=== PATIENT | male | born 1985 | race Caucasian/White ===

== ENCOUNTER 2021-05-08 23:43 | Emergency (ER) | payer OTHER ==
[~2021-05-08] VITALS: Ht 165.1 cm; Wt 75.0 kg
[2021-05-09 02:34] LABS: BASOPHILS % (AUTO) 2.4 % (0.0-2.0); EOSINOPHILS % (AUTO) 2.2 % (1.0-6.0); HEMATOCRIT 42.4 % (41-53); HEMOGLOBIN 13.8 g/dL (13.5-17.5); LYMPHOCYTES % (AUTO) 29.8 % (22.0-44.0); MEAN CORPUSCULAR HEMOGLOBIN 31.4 pg (26.0-34.0); MEAN CORPUSCULAR HGB CONC 32.6 G/dL (31.0-37.0); MEAN CORPUSCULAR VOLUME 96 fL (80-100); MONOCYTES # (AUTO) 0.7 K/uL (0.1-1.0); MONOCYTES % (AUTO) 10.1 % (2.0-9.0); NEUTROPHILS # (AUTO) 3.7 K/uL (1.8-7.7); NEUTROPHILS % (AUTO) 55.5 % (40.0-70.0); PLATELET COUNT (AUTO) 177 K/uL (150-450); RED BLOOD CELL COUNT(AUTO) 4.41 MIL/uL (4.50-5.90)
[2021-05-09 02:53] LABS: ANION GAP 6 mmol/L (8-16); CALCIUM, TOTAL 8.9 mg/dL (8.8-10.5); CARBON DIOXIDE 28 mmol/L (22-29); CHLORIDE 103 mmol/L (98-107); CREATININE 0.87 mg/dL (0.60-1.30); GLOMERULAR FILTR. RATE CALC > 60 mL/min (>60); GLUCOSE,RANDOM 94 mg/dL (70-110); SODIUM SERUM 137 mmol/L (136-145); UREA NITROGEN, BLOOD 30 mg/dL (7-18)
[2021-05-09 02:56] LABS: INR 1.2 (0.9-1.1); PROTHROMBIN TIME 12.4 SEC (9.4-11.6)
[2021-05-09 03:09] LABS: ALANINE AMINOTRANSFERASE 37 U/L (12-78); ALBUMIN 3.8 g/dL (3.4-5.0); ALKALINE PHOSPHATASE 95 U/L (46-116); ASPARTATE AMINOTRANSFERASE 22 U/L (15-37); BILIRUBIN,TOTAL 0.4 mg/dL (0.1-1.0); CREATINE KINASE, TOTAL ONLY 293 U/L (39-308)
[2021-05-09 03:16] LABS: B-TYPE NATRIURETIC PEPTIDE 6 pg/mL (0-100)
[2021-05-09 04:41] VITALS: BP 124/57
== END 2021-05-09 04:43 | disposition home or self-care (01) ==
LOC: EMS 23:43
DX: I44.0 Atrioventricular block, first degree (principal); F41.9 Anxiety disorder, unspecified; R00.1 Bradycardia, unspecified
CPT/HCPCS: 71045; 80053; 82550; 83880; 84484; 85025; 85610; 85730; 93005; 99285; 36415-L1; 36415-TC

== ENCOUNTER 2021-05-23 15:27 | Emergency (ER) | payer OTHER ==
[~2021-05-23] VITALS: Ht 165.1 cm; Wt 75.0 kg
[2021-05-23] MEDS ORDERED: HYDROCODONE/ACETAMINOPHEN 5-325 MG TABLET PO ONE (17:00)
[2021-05-23] MEDS ORDERED: LIDOCAINE 1% 10 ML VIAL ID ONE (17:00)
[2021-05-23] MEDS ORDERED: SODIUM CHLORIDE 0.9% 250 ML IRRIG SOLUTION BOTTLE IRRIG ONE (17:00)
[2021-05-23 20:27] VITALS: BP 128/77
== END 2021-05-23 20:30 | disposition home or self-care (01) ==
LOC: EMS 15:27
DX: S61.211A Laceration without foreign body of left index finger without damage to nail, initial encounter (principal); W25.XXXA Contact with sharp glass, initial encounter; Y93.89 Activity, other specified; Y92.89 Other specified places as the place of occurrence of the external cause; Y99.8 Other external cause status
CPT/HCPCS: 12001; 73130; 99283; J3490

== ENCOUNTER 2021-06-01 09:22 | Emergency (ER) | payer OTHER ==
[~2021-06-01] VITALS: Ht 170.2 cm; Wt 72.7 kg
[2021-06-01 11:47] VITALS: BP 125/71
== END 2021-06-01 11:48 | disposition home or self-care (01) ==
LOC: EMS 09:39
DX: S61.211A Laceration without foreign body of left index finger without damage to nail, initial encounter (principal); X58.XXXA Exposure to other specified factors, initial encounter; Y93.89 Activity, other specified; Y92.89 Other specified places as the place of occurrence of the external cause; Y99.8 Other external cause status
CPT/HCPCS: 12001; 99282; Z7502

== ENCOUNTER 2021-06-03 09:27 | Emergency (ER) | payer OTHER ==
[~2021-06-03] VITALS: Ht 165.1 cm; Wt 75.0 kg
[2021-06-03] MEDS ORDERED: CEPH500C3 PO (09:34)
[2021-06-03 09:38] VITALS: BP 117/66
== END 2021-06-03 10:00 | disposition left against medical advice (07) ==
LOC: EMS 09:27
DX: Z48.00 Encounter for change or removal of nonsurgical wound dressing (principal); Z53.21 Procedure and treatment not carried out due to patient leaving prior to being seen by health care provider

== ENCOUNTER 2021-06-23 06:57 | Emergency (ER) | payer OTHER ==
[~2021-06-23] VITALS: Ht 167.6 cm; Wt 77.3 kg
[~2021-06-23 06:57] MED LIST: CEPH500C3 PO
[2021-06-23 07:02] VITALS: BP 123/72
== END 2021-06-23 07:50 | disposition home or self-care (01) ==
LOC: EMS 06:57
DX: S61.211D Laceration without foreign body of left index finger without damage to nail, subsequent encounter (principal); Z48.00 Encounter for change or removal of nonsurgical wound dressing; W25.XXXD Contact with sharp glass, subsequent encounter
CPT/HCPCS: 99281; Z7502

== ENCOUNTER 2021-07-15 07:58 | Emergency (ER) | payer OTHER ==
[~2021-07-15] VITALS: Ht 165.1 cm; Wt 77.3 kg
[2021-07-15 08:01] VITALS: BP 115/67
== END 2021-07-15 08:40 | disposition home or self-care (01) ==
LOC: EMS 07:58
DX: S80.211A Abrasion, right knee, initial encounter (principal); Z48.00 Encounter for change or removal of nonsurgical wound dressing; W19.XXXA Unspecified fall, initial encounter; Y93.89 Activity, other specified; Y92.89 Other specified places as the place of occurrence of the external cause; Y99.8 Other external cause status
CPT/HCPCS: 99281; 99282; Z7502

== ENCOUNTER 2021-07-31 15:17 | Emergency (ER) | payer OTHER ==
[~2021-07-31] VITALS: Ht 165.1 cm; Wt 77.3 kg
[2021-07-31 19:44] LABS: ANION GAP 8 mmol/L (8-16); CALCIUM, TOTAL 8.7 mg/dL (8.8-10.5); CARBON DIOXIDE 26 mmol/L (22-29); CHLORIDE 106 mmol/L (98-107); CREATININE 0.65 mg/dL (0.60-1.30); GLOMERULAR FILTR. RATE CALC > 60 mL/min (>60); GLUCOSE,RANDOM 107 mg/dL (70-110); POTASSIUM 3.8 mmol/L (3.5-5.1); SODIUM SERUM 140 mmol/L (136-145); UREA NITROGEN, BLOOD 13 mg/dL (7-18)
[2021-07-31 19:45] LABS: BASOPHILS % (AUTO) 1.2 % (0.0-2.0); EOSINOPHILS % (AUTO) 1.2 % (1.0-6.0); HEMATOCRIT 45.2 % (41-53); HEMOGLOBIN 15.2 g/dL (13.5-17.5); LYMPHOCYTES # (AUTO) 2.1 K/uL (1.0-4.8); LYMPHOCYTES % (AUTO) 30.4 % (22.0-44.0); MEAN CORPUSCULAR HEMOGLOBIN 31.8 pg (26.0-34.0); MEAN CORPUSCULAR HGB CONC 33.5 G/dL (31.0-37.0); MEAN CORPUSCULAR VOLUME 95 fL (80-100); MONOCYTES # (AUTO) 0.5 K/uL (0.1-1.0); MONOCYTES % (AUTO) 7.7 % (2.0-9.0); NEUTROPHILS # (AUTO) 4.2 K/uL (1.8-7.7); NEUTROPHILS % (AUTO) 59.5 % (40.0-70.0); PLATELET COUNT (AUTO) 172 K/uL (150-450); RED BLOOD CELL COUNT(AUTO) 4.77 MIL/uL (4.50-5.90); RED CELL DISTRIBUTION WIDTH 13.8 % (11.5-14.5)
[2021-07-31 19:52] LABS: ALANINE AMINOTRANSFERASE 33 U/L (12-78); ALBUMIN 3.7 g/dL (3.4-5.0); ALKALINE PHOSPHATASE 77 U/L (46-116); ASPARTATE AMINOTRANSFERASE 20 U/L (15-37); BILIRUBIN,TOTAL 0.8 mg/dL (0.1-1.0); TOTAL PROTEIN, SERUM 7.6 g/dL (6.4-8.2)
[2021-07-31 20:08] VITALS: BP 132/82
== END 2021-07-31 20:08 | disposition home or self-care (01) ==
LOC: EMS 15:18
DX: H53.8 Other visual disturbances (principal)
CPT/HCPCS: 70450; 80053; 85025; 99284

== ENCOUNTER → 2021-08-21 | Emergency (ER) | payer OTHER ==
[~2021-08-21] VITALS: Ht 165.1 cm; Wt 77.3 kg
[2021-08-21 09:39] VITALS: BP 122/60
== END | disposition left against medical advice (07) ==
LOC: EDUNIT# 09:38 → EMS 09:44
DX: G47.00 Insomnia, unspecified (principal); Z53.21 Procedure and treatment not carried out due to patient leaving prior to being seen by health care provider

== ENCOUNTER 2021-09-22 22:25 | Emergency (ER) | payer OTHER ==
[~2021-09-22] VITALS: Ht 165.1 cm; Wt 80.0 kg
[2021-09-22 22:27] VITALS: BP 135/78
== END 2021-09-22 23:18 | disposition left against medical advice (07) ==
LOC: EMS 22:29
DX: F41.9 Anxiety disorder, unspecified (principal); Z53.21 Procedure and treatment not carried out due to patient leaving prior to being seen by health care provider

== ENCOUNTER 2022-02-23 06:12 | Emergency (ER) | payer OTHER ==
[~2022-02-23] VITALS: Ht 157.5 cm; Wt 77.3 kg
[2022-02-23 06:14] VITALS: BP 114/56
[2022-02-23] MEDS ORDERED: IBUPROFEN 400 MG TABLET PO ONE (06:45)
== END 2022-02-23 07:33 | disposition home or self-care (01) ==
LOC: EMS 06:20
DX: S60.042A Contusion of left ring finger without damage to nail, initial encounter (principal); X58.XXXA Exposure to other specified factors, initial encounter; Y93.89 Activity, other specified; Y92.89 Other specified places as the place of occurrence of the external cause; Y99.0 Civilian activity done for income or pay; Z86.79 Personal history of other diseases of the circulatory system
CPT/HCPCS: 99283

== ENCOUNTER 2023-05-10 14:04 | Emergency (ER) | payer OTHER ==
[~2023-05-10] VITALS: Ht 165.1 cm; Wt 77.3 kg
[2023-05-10 14:07] VITALS: BP 141/64; PULSE 82; RESP 16; TEMP 98.3
[2023-05-10] MEDS ORDERED: BACITRACIN 0.9 GM PACKET OINTMENT TP ONE (15:03)
== END 2023-05-10 15:15 | disposition home or self-care (01) ==
LOC: EMS 14:08
DX: L30.9 Dermatitis, unspecified (principal)
CPT/HCPCS: 99282; Z7502; Z7610

== ENCOUNTER 2023-08-21 04:33 | Emergency (ER) | payer MEDICAID, OTHER ==
[~2023-08-21] VITALS: Ht 167.6 cm; Wt 77.7 kg
[2023-08-21 04:37] VITALS: BP 111/64; PULSE 60; RESP 12; TEMP 98.2
[2023-08-21] MEDS ORDERED: DOCU-412 PO (06:35)
== END 2023-08-21 05:35 | disposition home or self-care (01) ==
LOC: EMS 04:34
DX: K62.5 Hemorrhage of anus and rectum (principal)
CPT/HCPCS: 99281; Z7502

== ENCOUNTER 2023-08-21 05:50 | Emergency (ER) | payer MEDICAID, OTHER ==
[~2023-08-21] VITALS: Ht 165.1 cm; Wt 77.3 kg
[2023-08-21 06:01] VITALS: TEMP 98.6
[2023-08-21] MEDS ORDERED: DOCU-412 PO (06:35)
[2023-08-21 06:58] VITALS: BP 112/63; PULSE 63; RESP 17
== END 2023-08-21 07:37 | disposition home or self-care (01) ==
LOC: EMS 05:50
DX: K64.9 Unspecified hemorrhoids (principal)
CPT/HCPCS: 99282; Z7502

== ENCOUNTER 2024-07-25 08:59 | Emergency (ER) | payer MEDICAID, OTHER ==
[~2024-07-25] VITALS: Ht 170.2 cm; Wt 75.0 kg
[~2024-07-25 08:59] MED LIST changes: -CEPH500C3 PO; +DOCU-412 PO
[2024-07-25 09:00] VITALS: BP 122/75; PULSE 128; RESP 16; TEMP 98.9; O2SAT 99
== END 2024-07-25 10:29 | disposition home or self-care (01) ==
LOC: EMS 08:59
DX: L02.425 Furuncle of right lower limb (principal); M25.561 Pain in right knee
CPT/HCPCS: 99282; Z7502